=== PATIENT | female | born 1935 | race Caucasian/White ===

== ENCOUNTER 2016-07-07 16:53 | Inpatient (IN) | payer MEDICARE, MEDICAID ==
[~2016-07-07] VITALS: Ht 165.1 cm; Wt 141.9 kg
[~2016-07-07 16:53] MED LIST: CITA20TA9 PO; PALI3 PO
[2016-07-07 17:56] LABS: BASOPHILS % (AUTO) 1.1 % (0.0-2.0); EOSINOPHILS % (AUTO) 3.3 % (1.0-6.0); HEMATOCRIT 34.6 % (36-46); HEMOGLOBIN 10.8 g/dL (12.0-16.0); LYMPHOCYTES # (AUTO) 1.6 K/uL (1.0-4.8); LYMPHOCYTES % (AUTO) 28.3 % (22.0-44.0); MEAN CORPUSCULAR HEMOGLOBIN 26.4 pg (26.0-34.0); MEAN CORPUSCULAR VOLUME 85 fL (80-100); MONOCYTES # (AUTO) 0.4 K/uL (0.1-1.0); MONOCYTES % (AUTO) 6.9 % (2.0-9.0); NEUTROPHILS # (AUTO) 3.4 K/uL (1.8-7.7); NEUTROPHILS % (AUTO) 60.4 % (40.0-70.0); PLATELET COUNT (AUTO) 142 K/uL (150-450); RED BLOOD CELL COUNT(AUTO) 4.08 MIL/uL (4.00-5.20); WHITE BLOOD COUNT (AUTO) 5.6 K/uL (4.5-11.0)
[2016-07-07 18:17] LABS: ANION GAP 9 mmol/L (8-16); CALCIUM, TOTAL 8.5 mg/dL (8.8-10.5); CARBON DIOXIDE 29 mmol/L (22-29); CHLORIDE 107 mmol/L (98-107); CREATININE 0.82 mg/dL (0.60-1.30); GLOMERULAR FILTR. RATE CALC > 60 mL/min (>60); SODIUM SERUM 145 mmol/L (136-145); UREA NITROGEN, BLOOD 15 mg/dL (7-18)
[2016-07-07 18:24] LABS: ALANINE AMINOTRANSFERASE 12 U/L (12-78); ALBUMIN 2.4 g/dL (3.4-5.0); ASPARTATE AMINOTRANSFERASE 15 U/L (15-37); BILIRUBIN,TOTAL 0.6 mg/dL (0.1-1.0); TOTAL PROTEIN, SERUM 6.7 g/dL (6.4-8.2)
[2016-07-07 18:40] LABS: RBC MORPHOLOGY COMMENT ABNORMAL RBC MORPH
[2016-07-07] MEDS ORDERED: ONDANSETRON HCL 4 MG/2 ML VIAL IVP PRN (21:00)
[2016-07-07] MEDS ORDERED: ACETAMINOPHEN 325 MG TABLET PO PRN (21:00)
[2016-07-07] MEDS ORDERED: 0.9% SODIUM CHLORIDE 10 ML SYRINGE IVP PRN (21:00)
[2016-07-07 21:09] VITALS: BP 140/90
[2016-07-07] MEDS ORDERED: DEXTROSE 50%-WATER 25 GM/50 ML SYRINGE IVP PRN (22:30)
[2016-07-07] MEDS ORDERED: INSULIN ASPART 100 UNITS/ML SQ PRN (22:30)
[2016-07-07 23:28] VITALS: BP 139/85
[2016-07-08 04:54] VITALS: BP 131/82
[2016-07-08 05:46] LABS: GLUCOSE COMMENT 1 Received Meds; GLUCOSE,POINT OF CARE 81 MG/DL (70-110)
[2016-07-08 06:47] LABS: GLUCOSE COMMENT 1 Received Meds; GLUCOSE,POINT OF CARE 76 MG/DL (70-110)
[2016-07-08 07:02] LABS: BASOPHILS % (AUTO) 0.6 % (0.0-2.0); EOSINOPHILS % (AUTO) 3.5 % (1.0-6.0); HEMATOCRIT 30.2 % (36-46); HEMOGLOBIN 9.5 g/dL (12.0-16.0); LYMPHOCYTES # (AUTO) 1.2 K/uL (1.0-4.8); MEAN CORPUSCULAR HEMOGLOBIN 26.9 pg (26.0-34.0); MEAN CORPUSCULAR HGB CONC 31.5 G/dL (31.0-37.0); MEAN CORPUSCULAR VOLUME 85 fL (80-100); MONOCYTES # (AUTO) 0.4 K/uL (0.1-1.0); MONOCYTES % (AUTO) 9.6 % (2.0-9.0); NEUTROPHILS # (AUTO) 2.2 K/uL (1.8-7.7); NEUTROPHILS % (AUTO) 56.3 % (40.0-70.0); PLATELET COUNT (AUTO) 166 K/uL (150-450); RED BLOOD CELL COUNT(AUTO) 3.54 MIL/uL (4.00-5.20); RED CELL DISTRIBUTION WIDTH 19.2 % (11.5-14.5); WHITE BLOOD COUNT (AUTO) 3.9 K/uL (4.5-11.0)
[2016-07-08 07:34] LABS: RBC MORPHOLOGY COMMENT ABNORMAL RBC MORPH
[2016-07-08 07:46] LABS: ALANINE AMINOTRANSFERASE 10 U/L (12-78); ALBUMIN 2.1 g/dL (3.4-5.0); ANION GAP 6 mmol/L (8-16); ASPARTATE AMINOTRANSFERASE 15 U/L (15-37); BILIRUBIN,TOTAL 0.4 mg/dL (0.1-1.0); CALCIUM, TOTAL 8.1 mg/dL (8.8-10.5); CARBON DIOXIDE 29 mmol/L (22-29); CHLORIDE 110 mmol/L (98-107); CREATININE 0.68 mg/dL (0.60-1.30); GLOMERULAR FILTR. RATE CALC > 60 mL/min (>60); PHOSPHORUS 3.7 mg/dL (2.5-4.9); SODIUM SERUM 145 mmol/L (136-145); THYROID STIMULATING HORMONE 2.15 uIU/mL (0.36-3.74); UREA NITROGEN, BLOOD 13 mg/dL (7-18)
[2016-07-08 07:53] LABS: IRON, SERUM 35 mcg/dL (50-175); TOTAL IRON BINDING CAPACITY 210 mcg/dL (250-450)
[2016-07-08 08:14] VITALS: BP 119/62
[2016-07-08] MEDS: ESCITALOPRAM OXALATE 10 MG TABLET PO SCH (10:10)
[2016-07-08 11:00] VITALS: BP 114/75
[2016-07-08 11:27] LABS: GLUCOSE,POINT OF CARE 106 MG/DL (70-110)
[2016-07-08] MEDS ORDERED: ACETAMINOPHEN 650 MG/20.3 ML SOLUTION UDCUP PO PRN (15:00)
[2016-07-08] MEDS ORDERED: BISACODYL 10 MG RECTAL RECTAL SUPPOSITORY PR PRN (15:00)
[2016-07-08] MEDS ORDERED: ACETAMINOPHEN 325 MG TABLET PO PRN (15:00)
[2016-07-08] MEDS ORDERED: ZOLPIDEM TARTRATE 5 MG TABLET PO PRN (15:00)
[2016-07-08] MEDS: PANTOPRAZOLE SODIUM 40 MG DR TABLET PO SCH (15:08)
[2016-07-08 15:59] VITALS: BP 102/67
[2016-07-08 17:16] LABS: GLUCOSE,POINT OF CARE 89 MG/DL (70-110)
[2016-07-08 20:00] VITALS: BP 124/77
[2016-07-08] MEDS: DOCUSATE SODIUM 100 MG CAPSULE PO SCH (20:46)
[2016-07-08 22:42] LABS: GLUCOSE,POINT OF CARE 93 MG/DL (70-110)
[2016-07-08 23:46] VITALS: BP 98/60
[2016-07-09 04:17] VITALS: BP 115/86
[2016-07-09 06:42] LABS: GLUCOSE,POINT OF CARE 86 MG/DL (70-110)
[2016-07-09 07:45] VITALS: BP 154/77
[2016-07-09] MEDS: PANTOPRAZOLE SODIUM 40 MG DR TABLET PO SCH (08:48)
[2016-07-09] MEDS: ESCITALOPRAM OXALATE 10 MG TABLET PO SCH (08:50)
[2016-07-09] MEDS: DOCUSATE SODIUM 100 MG CAPSULE PO SCH ×2 (08:50→20:37)
[2016-07-09 11:34] VITALS: BP 141/86
[2016-07-09 11:42] LABS: GLUCOSE,POINT OF CARE 98 MG/DL (70-110)
[2016-07-09] MEDS ORDERED: INFLUENZA VIRUS VACCINE QVS 2016-17 (3YR+)/PF 60 MCG/0.5 ML SYRINGE IM ONE (12:15)
[2016-07-09 15:33] VITALS: BP 156/90
[2016-07-09 16:00] VITALS: BP 131/86
[2016-07-09 17:56] LABS: GLUCOSE,POINT OF CARE 82 MG/DL (70-110)
[2016-07-09 19:36] VITALS: BP 154/95
[2016-07-09 23:31] LABS: GLUCOSE,POINT OF CARE 100 MG/DL (70-110)
[2016-07-10 08:00] VITALS: BP 132/74
[2016-07-10] MEDS: PANTOPRAZOLE SODIUM 40 MG DR TABLET PO SCH (08:01)
[2016-07-10] MEDS: ESCITALOPRAM OXALATE 10 MG TABLET PO SCH (08:01)
[2016-07-10] MEDS: DOCUSATE SODIUM 100 MG CAPSULE PO SCH (08:01)
[2016-07-10 11:55] VITALS: BP 155/81
[2016-07-10 11:59] LABS: GLUCOSE,POINT OF CARE 80 MG/DL (70-110)
[2016-07-10 12:00] LABS: GLUCOSE,POINT OF CARE 101 MG/DL (70-110)
[2016-07-10] MEDS ORDERED: IRON SUCROSE COMPLEX 100 MG in SODIUM CHLORIDE 0.9% 100 ML IV ONE (15:00)
[2016-07-10 16:21] VITALS: BP 135/59
[2016-07-10 17:27] LABS: GLUCOSE,POINT OF CARE 90 MG/DL (70-110)
[2016-07-10 19:24] VITALS: BP 141/79
== END 2016-07-10 21:38 | DRG 811 ==
LOC: EMS 16:58 → 6N 19:30
PROVIDERS: ADMIT Internal Medicine; ATTEND Internal Medicine
DX: D50.9 Iron deficiency anemia, unspecified (principal); E43 Unspecified severe protein-calorie malnutrition; Z68.43 Body mass index [BMI] 50.0-59.9, adult; F32.1 Major depressive disorder, single episode, moderate; R45.851 Suicidal ideations; L89.151 Pressure ulcer of sacral region, stage 1; G89.29 Other chronic pain; M25.562 Pain in left knee; M25.561 Pain in right knee; R62.7 Adult failure to thrive; F41.9 Anxiety disorder, unspecified; E66.01 Morbid (severe) obesity due to excess calories; F03.90 Unspecified dementia, unspecified severity, without behavioral disturbance, psychotic disturbance, mood disturbance, and anxiety; E78.5 Hyperlipidemia, unspecified; I25.10 Atherosclerotic heart disease of native coronary artery without angina pectoris; R54 Age-related physical debility; E11.9 Type 2 diabetes mellitus without complications; Z53.29 Procedure and treatment not carried out because of patient's decision for other reasons; Z95.1 Presence of aortocoronary bypass graft; Z90.49 Acquired absence of other specified parts of digestive tract; Z88.0 Allergy status to penicillin; Z79.899 Other long term (current) drug therapy; Z86.73 Personal history of transient ischemic attack (TIA), and cerebral infarction without residual deficits; Z83.3 Family history of diabetes mellitus; Z82.49 Family history of ischemic heart disease and other diseases of the circulatory system
CPT/HCPCS: 82271; 82607; 82746; 82962; 83540; 83550; 83735; 84100; 84443; 97162; 99285; G0480; J1756; J7050

== ENCOUNTER 2021-06-06 12:08 | Inpatient (IN) | payer MEDICARE, OTHER ==
[~2021-06-06] VITALS: Ht 175.3 cm; Wt 127.0 kg
[~2021-06-06 12:08] MED LIST changes: +ACET-784 PO; +APIX2.5T PO; +ASPI-1450 PO; +BISA10SU11 PR; +BUPR75 PO; +CEFU250T87 PO; +CHOL-35 PO; +CITA-144 PO; -CITA20TA9 PO; +DIPH25TA20 PO; +DOCU-270 PO; +DOXY-354 PO; +FAMO20 PO; +FERR-89 PO; +FLUT16H NASAL; +INSU100V SQ; +LACT1CAP70 PO; +METO25XL PO; +MOM30 PO; +MULT-1203 PO; -PALI3 PO; +VALS40TA4 PO
[2021-06-06] MEDS ORDERED: SODIUM CHLORIDE 0.9% 2,000 ML IV ONE (12:30)
[2021-06-06] MEDS ORDERED: ACETAMINOPHEN 1000 MG/ISO-OSM 100 ML IV ONE (13:00)
[2021-06-06] MEDS ORDERED: CefTRIAXone 1 GM/DEXTROSE 50 ML IV ONE (13:00)
[2021-06-06 13:03] LABS: BASOPHILS % (AUTO) 0.4 % (0.0-2.0); EOSINOPHILS % (AUTO) 0.2 % (1.0-6.0); HEMATOCRIT 31.5 % (36-46); LYMPHOCYTES # (AUTO) 0.3 K/uL (1.0-4.8); LYMPHOCYTES % (AUTO) 2.3 % (22.0-44.0); MEAN CORPUSCULAR HEMOGLOBIN 28.2 pg (26.0-34.0); MEAN CORPUSCULAR HGB CONC 31.9 G/dL (31.0-37.0); MEAN CORPUSCULAR VOLUME 89 fL (80-100); MONOCYTES # (AUTO) 0.3 K/uL (0.1-1.0); MONOCYTES % (AUTO) 2.4 % (2.0-9.0); NEUTROPHILS # (AUTO) 10.9 K/uL (1.8-7.7); PLATELET COUNT (AUTO) 140 K/uL (150-450); RED BLOOD CELL COUNT(AUTO) 3.56 MIL/uL (4.00-5.20)
[2021-06-06 13:12] LABS: NEUTROPHILS % (AUTO) 94.7 % (40.0-70.0)
[2021-06-06 13:19] LABS: ANION GAP 17 mmol/L (8-16); CARBON DIOXIDE 23 mmol/L (22-29); CHLORIDE 105 mmol/L (98-107); CREATININE 2.08 mg/dL (0.60-1.30); GLOMERULAR FILTR. RATE CALC 23 mL/min (>60); GLUCOSE,RANDOM 137 mg/dL (70-110); POTASSIUM 5.2 mmol/L (3.5-5.1); SODIUM SERUM 145 mmol/L (136-145); UREA NITROGEN, BLOOD 43 mg/dL (7-18)
[2021-06-06 13:20] LABS: CALCIUM, TOTAL 9.4 mg/dL (8.8-10.5)
[2021-06-06 13:25] LABS: ALANINE AMINOTRANSFERASE 35 U/L (12-78); ALBUMIN 2.6 g/dL (3.4-5.0); ALKALINE PHOSPHATASE 41 U/L (46-116); ASPARTATE AMINOTRANSFERASE 89 U/L (15-37); BILIRUBIN,TOTAL 0.9 mg/dL (0.1-1.0); LIPASE 33 U/L (73-393); TOTAL PROTEIN, SERUM 7.8 g/dL (6.4-8.2)
[2021-06-06 13:30] LABS: ABG CARBOXYHEMOGLOBIN 0.3 % (0.0-1.5); ABG HCO3 23.2 mmol/L (22.0-26.0); ABG METHEMOGLOBIN 0.3 % (0.0-1.5); ABG OXYGEN CONTENT 13.9 mL/dL (15.0-23.0); ABG OXYGEN SATURATION 91.6 % (95.0-98.0); ABG OXYHEMOGLOBIN 91.1 % (94.0-100.0); ABG PCO2 34 mmHg (35-45); ABG PH 7.438 (7.35-7.450); ABG TOTAL HEMOGLOBIN 10.8 G/dL (12.0-18.0); PO2, ARTERIAL BG 61.7 mmHg (71.0-79.0); SOURCE, BLOOD GAS ARTERIAL; TEMPERATURE, FAHRENHEIT, BG 98.7 FAHREN (96.0-98.6)
[2021-06-06 13:40] LABS: B-TYPE NATRIURETIC PEPTIDE 1720 pg/mL (0-100)
[2021-06-06 13:44] LABS: COVID AG,FIA SOURCE NASOPHARYNGEAL
[2021-06-06 13:46] LABS: AMMONIA < 10 umol/L (11-32)
[2021-06-06 13:56] LABS: SITE, BLOOD GAS RT RADIAL
[2021-06-06 13:57] LABS: LACTIC ACID 4.1 mmol/L (0.4-2.0)
[2021-06-06] MEDS ORDERED: VANCOMYCIN HCL 1 GM/D5% WATER 200 ML IV ONE (14:45)
[2021-06-06] MEDS ORDERED: SODIUM CHLORIDE 0.9% 2,400 ML IV ONE (14:45)
[2021-06-06 14:59] LABS: APPEARANCE,URINE TURBID (CLEAR); GLUCOSE, URINE (UA) NEGATIVE (NEGATIVE); KETONES,URINE 15 mg/dL (NEGATIVE); LEUKOCYTE ESTERASE ,URINE SMALL (NEGATIVE); NITRATE,URINE POSITIVE (NEGATIVE); OCCULT BLOOD,URINE LARGE (NEGATIVE); PROTEIN,URINE SEE CONFIRM (NEGATIVE)
[2021-06-06 15:06] LABS: BILIRUBIN,URINE PRELIM. POSITIVE (NEGATIVE)
[2021-06-06 15:34] LABS: SULFOSALICYLIC ACID,URINE 3+ (Negative)
[2021-06-06 15:36] LABS: BACTERIA,URINE Moderate /HPF (None Seen); COARSE GRANULAR CASTS,URINE 0-2 /LPF (None Seen); RBC,URINE 26-50 /HPF (0-2); SQUAMOUS EPITHELIAL CELL,UR Few /LPF (None Seen)
[2021-06-06] MEDS ORDERED: BISACODYL 10 MG RECTAL RECTAL SUPPOSITORY PR PRN (15:45)
[2021-06-06] MEDS ORDERED: DEXTROSE 50%-WATER 25 GM/50 ML SYRINGE IVP PRN (15:45)
[2021-06-06] MEDS ORDERED: SODIUM CHLORIDE 0.9% 1,000 ML IV ONE (15:45)
[2021-06-06] MEDS ORDERED: ONDANSETRON HCL 4 MG/2 ML VIAL IVP PRN (15:45)
[2021-06-06] MEDS ORDERED: INSULIN LISPRO 100 UNITS/ML SQ PRN (15:45)
[2021-06-06] MEDS ORDERED: ACETAMINOPHEN 325 MG TABLET PO PRN (15:45)
[2021-06-06] MEDS ORDERED: HEPARIN SODIUM,PORCINE 5,000 UNITS/ML VIAL IVP ONE (16:00)
[2021-06-06] MEDS ORDERED: HEPARIN SODIUM,PORCINE 5,000 UNITS/ML VIAL IVP PRN ×2 (16:00)
[2021-06-06] MEDS ORDERED: VANCOMYCIN HCL 750 MG in DEXTROSE 5%-WATER 250 ML IV ONE (16:15)
[2021-06-06 16:34] LABS: HEMATOCRIT 27.5 % (36-46); HEMOGLOBIN 8.8 g/dL (12.0-16.0); MEAN CORPUSCULAR HEMOGLOBIN 28.2 pg (26.0-34.0); MEAN CORPUSCULAR HGB CONC 32.2 G/dL (31.0-37.0); MEAN CORPUSCULAR VOLUME 87 fL (80-100); PLATELET COUNT (AUTO) 125 K/uL (150-450); RED BLOOD CELL COUNT(AUTO) 3.14 MIL/uL (4.00-5.20); RED CELL DISTRIBUTION WIDTH 15.7 % (11.5-14.5)
[2021-06-06 16:42] LABS: INR 1.2 (0.9-1.1); PROTHROMBIN TIME 12.6 SEC (9.4-11.6)
[2021-06-06] MEDS: NOREPINEPHRINE 4 MG/D5%-WATER 250 ML IV PRN ×2 (16:51→21:32)
[2021-06-06 16:54] LABS: BAND NEUTROPHILS % (MANUAL) 17 % (0-5); LYMPHOCYTES % (MANUAL) 10 % (22-44); MONOCYTES % (MANUAL) 5 % (2-9); SEGMENTED NEUTROPHILS % 68 % (40-70)
[2021-06-06] MEDS: HEPARIN SODIUM 25000 UNITS/D5W 250 ML IV PRN (17:26)
[2021-06-06] MEDS: ASPIRIN 81 MG DR TABLET PO SCH (18:30)
[2021-06-06 18:49] LABS: CALCIUM, TOTAL 8.1 mg/dL (8.8-10.5); CREATININE 2.05 mg/dL (0.60-1.30); POTASSIUM 3.5 mmol/L (3.5-5.1)
[2021-06-06 20:00] VITALS: BP 97/48
[2021-06-06] MEDS: SODIUM CHLORIDE 0.9% 1,000 ML IV SCH (21:32)
[2021-06-06] MEDS: PANTOPRAZOLE SODIUM 40 MG/VIAL IVP SCH (21:34)
[2021-06-07] VITALS: BP 100/38
[2021-06-07] MEDS: NOREPINEPHRINE 4 MG/D5%-WATER 250 ML IV PRN ×3 (01:20→10:50)
[2021-06-07 04:00] VITALS: BP 94/38
[2021-06-07 06:10] LABS: BASOPHILS % (AUTO) 0.4 % (0.0-2.0); EOSINOPHILS % (AUTO) 0.5 % (1.0-6.0); HEMATOCRIT 29.7 % (36-46); HEMOGLOBIN 9.5 g/dL (12.0-16.0); LYMPHOCYTES % (AUTO) 4.6 % (22.0-44.0); MEAN CORPUSCULAR HEMOGLOBIN 28.1 pg (26.0-34.0); MEAN CORPUSCULAR VOLUME 88 fL (80-100); MONOCYTES # (AUTO) 1.1 K/uL (0.1-1.0); MONOCYTES % (AUTO) 5.2 % (2.0-9.0); NEUTROPHILS # (AUTO) 19.1 K/uL (1.8-7.7); PLATELET COUNT (AUTO) 180 K/uL (150-450); RED BLOOD CELL COUNT(AUTO) 3.39 MIL/uL (4.00-5.20); RED CELL DISTRIBUTION WIDTH 16.3 % (11.5-14.5)
[2021-06-07 06:29] LABS: % IRON SATURATION 5.4 % (22-44)
[2021-06-07 06:49] LABS: NEUTROPHILS % (AUTO) 89.3 % (40.0-70.0)
[2021-06-07 08:00] VITALS: BP 107/61
[2021-06-07 08:11] LABS: CHOL/HDL RATIO 4.9 (3.9-5.7); CREATININE 2.08 mg/dL (0.60-1.30); POTASSIUM 3.4 mmol/L (3.5-5.1)
[2021-06-07] MEDS: PANTOPRAZOLE SODIUM 40 MG/VIAL IVP SCH (08:49)
[2021-06-07] MEDS: ATORVASTATIN CALCIUM 40 MG TABLET PO SCH (09:00)
[2021-06-07] MEDS: ASPIRIN 81 MG DR TABLET PO SCH (09:00)
[2021-06-07] MEDS ORDERED: PANTOPRAZOLE SODIUM 40 MG/VIAL IVP SCH (09:00)
[2021-06-07] MEDS: VANCOMYCIN HCL 750 MG in DEXTROSE 5%-WATER 250 ML IV SCH (10:48)
[2021-06-07 12:00] VITALS: BP 107/61
[2021-06-07] MEDS: CefTRIAXone 1 GM/DEXTROSE 50 ML IV SCH (12:40)
[2021-06-07] MEDS: HEPARIN SODIUM 25000 UNITS/D5W 250 ML IV PRN (13:12)
[2021-06-07] MEDS: SODIUM CHLORIDE 0.9% 1,000 ML IV SCH (14:42)
[2021-06-07 14:51] LABS: GLUCOMETER DEV NAME(LOC) AHU.; GLUCOSE,POINT OF CARE 171 MG/DL (70-110)
[2021-06-07 14:51] LABS: GLUCOMETER DEV NAME(LOC) AHU.; GLUCOSE,POINT OF CARE 151 MG/DL (70-110)
[2021-06-07] MEDS ORDERED: CefTRIAXone 1 GM/DEXTROSE 50 ML IV SCH (15:00)
[2021-06-07 16:00] VITALS: BP 128/57
[2021-06-07 18:36] LABS: GLUCOMETER DEV NAME(LOC) AHU.; GLUCOSE,POINT OF CARE 117 MG/DL (70-110)
[2021-06-07 20:00] VITALS: BP 117/76
[2021-06-07 23:31] LABS: GLUCOMETER DEV NAME(LOC) AHU.; GLUCOSE,POINT OF CARE 98 MG/DL (70-110)
[2021-06-08] VITALS: BP 96/40
[2021-06-08] MEDS: SODIUM CHLORIDE 0.9% 1,000 ML IV SCH ×2 (00:07→20:59)
[2021-06-08] MEDS: NOREPINEPHRINE 4 MG/D5%-WATER 250 ML IV PRN ×2 (00:09→05:27)
[2021-06-08 04:00] VITALS: BP 103/47
[2021-06-08 06:33] LABS: CALCIUM, TOTAL 7.9 mg/dL (8.8-10.5); CREATININE 1.46 mg/dL (0.60-1.30); MAGNESIUM 1.9 mg/dL (1.80-2.40); PHOSPHORUS 2.1 mg/dL (2.5-4.9)
[2021-06-08 06:51] LABS: POTASSIUM 2.7 mmol/L (3.5-5.1)
[2021-06-08] MEDS ORDERED: POTASSIUM CHLORIDE 10% 40 MEQ/30 ML LIQUID UDCUP PO ONE (07:00)
[2021-06-08 07:01] LABS: BASOPHILS % (AUTO) 0.3 % (0.0-2.0); EOSINOPHILS % (AUTO) 0.3 % (1.0-6.0); HEMATOCRIT 28.1 % (36-46); HEMOGLOBIN 9.4 g/dL (12.0-16.0); LYMPHOCYTES % (AUTO) 7.9 % (22.0-44.0); MEAN CORPUSCULAR HEMOGLOBIN 28.4 pg (26.0-34.0); MEAN CORPUSCULAR HGB CONC 33.3 G/dL (31.0-37.0); MEAN CORPUSCULAR VOLUME 85 fL (80-100); MONOCYTES # (AUTO) 0.8 K/uL (0.1-1.0); MONOCYTES % (AUTO) 6.1 % (2.0-9.0); NEUTROPHILS # (AUTO) 10.9 K/uL (1.8-7.7); PLATELET COUNT (AUTO) 159 K/uL (150-450); RED BLOOD CELL COUNT(AUTO) 3.29 MIL/uL (4.00-5.20)
[2021-06-08 07:05] LABS: NEUTROPHILS % (AUTO) 85.4 % (40.0-70.0)
[2021-06-08 07:11] LABS: GLUCOMETER DEV NAME(LOC) AHU.; GLUCOSE,POINT OF CARE 103 MG/DL (70-110)
[2021-06-08 08:00] VITALS: BP 112/51
[2021-06-08] MEDS: PANTOPRAZOLE SODIUM 40 MG/VIAL IVP SCH (08:07)
[2021-06-08] MEDS: VANCOMYCIN HCL 750 MG in DEXTROSE 5%-WATER 250 ML IV SCH (08:09)
[2021-06-08] MEDS: HEPARIN SODIUM,PORCINE 5,000 UNITS/ML VIAL SQ SCH ×2 (08:13→16:21)
[2021-06-08] MEDS: ASPIRIN 81 MG DR TABLET PO SCH (09:00)
[2021-06-08] MEDS: ATORVASTATIN CALCIUM 40 MG TABLET PO SCH (09:00)
[2021-06-08] MEDS ORDERED: SODIUM PHOS,M-BASIC-D-BASIC 30 MMOL in DEXTROSE 5%-WATER 250 ML IV ONE (10:00)
[2021-06-08] MEDS: POTASSIUM CHL 10 MEQ/WATER 50 ML IV SCH ×4 (11:10→14:42)
[2021-06-08 12:00] VITALS: BP 123/54
[2021-06-08] MEDS: CefTRIAXone 1 GM/DEXTROSE 50 ML IV SCH (14:39)
[2021-06-08 16:35] LABS: CALCIUM, TOTAL 7.8 mg/dL (8.8-10.5); CREATININE 1.24 mg/dL (0.60-1.30); POTASSIUM 3.6 mmol/L (3.5-5.1)
[2021-06-08 17:56] LABS: GLUCOMETER DEV NAME(LOC) AHU.; GLUCOSE,POINT OF CARE 108 MG/DL (70-110)
[2021-06-08 18:00] VITALS: BP 88/46
[2021-06-08 20:00] VITALS: BP 95/54
[2021-06-09] VITALS (12 sets, daily range): BP systolic 80–143; BP diastolic 32–80
[2021-06-09] MEDS: HEPARIN SODIUM,PORCINE 5,000 UNITS/ML VIAL SQ SCH ×3 (00:06→16:46)
[2021-06-09] MEDS: NOREPINEPHRINE 4 MG/D5%-WATER 250 ML IV PRN (01:23)
[2021-06-09 05:25] LABS: GLUCOMETER DEV NAME(LOC) AHU.; GLUCOSE,POINT OF CARE 107 MG/DL (70-110)
[2021-06-09 05:53] LABS: CREATININE 1.08 mg/dL (0.60-1.30); MAGNESIUM 1.9 mg/dL (1.80-2.40); VANCOMYCIN,RANDOM 12.5 mcg/mL (25.0-50.0)
[2021-06-09] MEDS: ATORVASTATIN CALCIUM 40 MG TABLET PO SCH (08:04)
[2021-06-09] MEDS: ASPIRIN 81 MG DR TABLET PO SCH (08:05)
[2021-06-09] MEDS: PANTOPRAZOLE SODIUM 40 MG/VIAL IVP SCH (08:15)
[2021-06-09] MEDS: VANCOMYCIN HCL 750 MG in DEXTROSE 5%-WATER 250 ML IV SCH (08:19)
[2021-06-09] MEDS ORDERED: POTASSIUM CHLORIDE 10% 40 MEQ/30 ML LIQUID UDCUP PO STA (09:13)
[2021-06-09] MEDS ORDERED: SODIUM BICARBONATE 50 MEQ/50 ML VIAL ONE (09:24)
[2021-06-09] MEDS ORDERED: IOHEXOL 300 MG/ML 100 ML VIAL ONE (09:24)
[2021-06-09] MEDS ORDERED: HEPARIN SODIUM 1000 UNITS/NS 1,000 ML ONE (09:24)
[2021-06-09] MEDS ORDERED: LIDOCAINE/PF 1% 30 ML VIAL ONE (09:24)
[2021-06-09] MEDS ORDERED: IOHEXOL 300 MG/ML 50 ML VIAL ONE ×2 (09:24→10:43)
[2021-06-09] MEDS ORDERED: IOHEXOL 300 MG/ML 150 ML VIAL ONE (09:24)
[2021-06-09] MEDS ORDERED: MIDAZOLAM HCL 2 MG/2 ML VIAL ONE (09:43)
[2021-06-09] MEDS ORDERED: FentaNYL CITRATE PF 100 MCG/2 ML VIAL ONE (09:43)
[2021-06-09] MEDS ORDERED: FentaNYL CITRATE PF 100 MCG/2 ML VIAL IVP ONE ×4 (10:00→10:45)
[2021-06-09] MEDS ORDERED: HEPARIN SODIUM 1000 UNITS/NS 1,000 ML IARTER ONE (10:00)
[2021-06-09] MEDS ORDERED: SODIUM CHLORIDE 0.9% 500 ML IV ONE (10:00)
[2021-06-09] MEDS ORDERED: IOHEXOL 300 MG/ML 150 ML VIAL IARTER ONE (10:00)
[2021-06-09] MEDS ORDERED: LIDOCAINE 1% 30 ML/SOD BICARB 8.4% 4 ML SQ ONE (10:00)
[2021-06-09] MEDS ORDERED: IOHEXOL 240 MG/ML 50 ML VIAL IARTER ONE (11:00)
[2021-06-09] MEDS ORDERED: IOHEXOL 300 MG/ML 100 ML VIAL IARTER ONE (11:00)
[2021-06-09] MEDS ORDERED: HEPARIN SODIUM,PORCINE 5,000 UNITS/ML VIAL IVP ONE ×2 (11:15→13:00)
[2021-06-09] MEDS: CefTRIAXone 1 GM/DEXTROSE 50 ML IV SCH (12:26)
[2021-06-09 14:41] LABS: GLUCOMETER DEV NAME(LOC) AHU.; GLUCOSE,POINT OF CARE 154 MG/DL (70-110)
[2021-06-09 20:45] LABS: GLUCOSE,POINT OF CARE 123 MG/DL (70-110)
[2021-06-09] MEDS ORDERED: SODIUM CHLORIDE 0.9% 1,000 ML ONE (21:00)
[2021-06-09 22:56] LABS: GLUCOMETER DEV NAME(LOC) AHU.; GLUCOSE,POINT OF CARE 94 MG/DL (70-110)
[2021-06-10] VITALS: BP 104/64
[2021-06-10] MEDS: HEPARIN SODIUM,PORCINE 5,000 UNITS/ML VIAL SQ SCH ×4 (00:26→23:49)
[2021-06-10 04:00] VITALS: BP 139/76
[2021-06-10 06:23] LABS: BASOPHILS % (AUTO) 0.9 % (0.0-2.0); EOSINOPHILS % (AUTO) 1.8 % (1.0-6.0); HEMATOCRIT 25.6 % (36-46); HEMOGLOBIN 8.5 g/dL (12.0-16.0); LYMPHOCYTES # (AUTO) 0.7 K/uL (1.0-4.8); MEAN CORPUSCULAR HEMOGLOBIN 28.7 pg (26.0-34.0); MEAN CORPUSCULAR HGB CONC 33.3 G/dL (31.0-37.0); MEAN CORPUSCULAR VOLUME 86 fL (80-100); MONOCYTES # (AUTO) 0.3 K/uL (0.1-1.0); MONOCYTES % (AUTO) 8.3 % (2.0-9.0); NEUTROPHILS # (AUTO) 2.8 K/uL (1.8-7.7); PLATELET COUNT (AUTO) 156 K/uL (150-450); RED BLOOD CELL COUNT(AUTO) 2.96 MIL/uL (4.00-5.20); RED CELL DISTRIBUTION WIDTH 15.9 % (11.5-14.5)
[2021-06-10 06:33] LABS: CALCIUM, TOTAL 8.1 mg/dL (8.8-10.5); CREATININE 0.93 mg/dL (0.60-1.30); MAGNESIUM 1.6 mg/dL (1.80-2.40); POTASSIUM 3.5 mmol/L (3.5-5.1)
[2021-06-10 06:36] LABS: GLUCOSE,POINT OF CARE 94 MG/DL (70-110)
[2021-06-10 08:00] VITALS: BP 112/65
[2021-06-10] MEDS ORDERED: VANCOMYCIN HCL 1.25 GM in DEXTROSE 5%-WATER 250 ML IV SCH (08:00)
[2021-06-10] MEDS: ASPIRIN 81 MG DR TABLET PO SCH (08:39)
[2021-06-10] MEDS: PANTOPRAZOLE SODIUM 40 MG/VIAL IVP SCH (08:39)
[2021-06-10] MEDS: ATORVASTATIN CALCIUM 40 MG TABLET PO SCH (08:39)
[2021-06-10] MEDS: APIXABAN 2.5 MG TABLET PO SCH ×2 (08:40→20:15)
[2021-06-10] MEDS ORDERED: GABAPENTIN 300 MG CAPSULE PO SCH ×2 (10:00→21:00)
[2021-06-10] MEDS: OLANZapine 5 MG TABLET PO SCH ×2 (10:41→20:15)
[2021-06-10] MEDS ORDERED: OLAN5TAB52 PO (10:58)
[2021-06-10] MEDS ORDERED: MELA5TAB21 PO (10:58)
[2021-06-10] MEDS ORDERED: GABA-1181 PO ×2 (10:58)
[2021-06-10] MEDS ORDERED: MELA5TAB40 PO (11:34)
[2021-06-10 11:51] LABS: GLUCOSE,POINT OF CARE 108 MG/DL (70-110)
[2021-06-10 12:00] VITALS: BP 127/65
[2021-06-10] MEDS: CefTRIAXone SODIUM 2 GM in DEXTROSE 5%-WATER 50 ML IV SCH (12:00)
[2021-06-10] MEDS: GABAPENTIN 300 MG CAPSULE PO SCH ×3 (13:00→20:15)
[2021-06-10] MEDS ORDERED: SODIUM CHLORIDE 0.9% 250 ML IV ONE (13:40)
[2021-06-10] MEDS: ALPRAZolam 0.25 MG TABLET PO PRN (15:34)
[2021-06-10] MEDS: IRON SUCROSE COMPLEX 100 MG in SODIUM CHLORIDE 0.9% 100 ML IV SCH (15:41)
[2021-06-10 17:51] LABS: GLUCOMETER DEV NAME(LOC) 5N.3; GLUCOSE,POINT OF CARE 85 MG/DL (70-110)
[2021-06-10 22:09] VITALS: BP 107/57
[2021-06-11 00:53] VITALS: BP 134/54
[2021-06-11 04:00] VITALS: BP 117/58
[2021-06-11 05:16] LABS: GLUCOMETER DEV NAME(LOC) 5N.1C; GLUCOSE,POINT OF CARE 83 MG/DL (70-110)
[2021-06-11] MEDS: HEPARIN SODIUM,PORCINE 5,000 UNITS/ML VIAL SQ SCH ×4 (08:00→23:31)
[2021-06-11] MEDS: ASPIRIN 81 MG DR TABLET PO SCH (08:39)
[2021-06-11] MEDS: PANTOPRAZOLE SODIUM 40 MG/VIAL IVP SCH (08:39)
[2021-06-11] MEDS: OLANZapine 5 MG TABLET PO SCH ×2 (08:39→20:27)
[2021-06-11] MEDS: APIXABAN 2.5 MG TABLET PO SCH ×2 (08:40→20:27)
[2021-06-11] MEDS: ATORVASTATIN CALCIUM 40 MG TABLET PO SCH (08:40)
[2021-06-11] MEDS: GABAPENTIN 300 MG CAPSULE PO SCH ×4 (08:43→20:27)
[2021-06-11] MEDS: ALPRAZolam 0.25 MG TABLET PO PRN (11:36)
[2021-06-11 12:29] LABS: CALCIUM, TOTAL 8.8 mg/dL (8.8-10.5); CREATININE 1.02 mg/dL (0.60-1.30); POTASSIUM 4.1 mmol/L (3.5-5.1)
[2021-06-11 12:31] LABS: GLUCOMETER DEV NAME(LOC) 5S.2B; GLUCOSE,POINT OF CARE 111 MG/DL (70-110)
[2021-06-11 12:35] LABS: BILIRUBIN,TOTAL 0.4 mg/dL (0.1-1.0); MAGNESIUM 2.2 mg/dL (1.80-2.40); TOTAL PROTEIN, SERUM 6.7 g/dL (6.4-8.2)
[2021-06-11 12:42] LABS: ALBUMIN 2.1 g/dL (3.4-5.0)
[2021-06-11 12:44] LABS: BASOPHILS % (AUTO) 0.6 % (0.0-2.0); EOSINOPHILS % (AUTO) 1.4 % (1.0-6.0); HEMATOCRIT 27.7 % (36-46); HEMOGLOBIN 8.9 g/dL (12.0-16.0); LYMPHOCYTES # (AUTO) 0.9 K/uL (1.0-4.8); LYMPHOCYTES % (AUTO) 15.1 % (22.0-44.0); MEAN CORPUSCULAR HEMOGLOBIN 28.4 pg (26.0-34.0); MEAN CORPUSCULAR HGB CONC 32.4 G/dL (31.0-37.0); MEAN CORPUSCULAR VOLUME 88 fL (80-100); MONOCYTES # (AUTO) 0.5 K/uL (0.1-1.0); MONOCYTES % (AUTO) 8.3 % (2.0-9.0); NEUTROPHILS # (AUTO) 4.6 K/uL (1.8-7.7); NEUTROPHILS % (AUTO) 74.6 % (40.0-70.0); PLATELET COUNT (AUTO) 231 K/uL (150-450); RED BLOOD CELL COUNT(AUTO) 3.15 MIL/uL (4.00-5.20); RED CELL DISTRIBUTION WIDTH 16.4 % (11.5-14.5)
[2021-06-11] MEDS ORDERED: HALOPERIDOL 5 MG TABLET PO ONE (13:15)
[2021-06-11] MEDS ORDERED: LORazepam 2 MG TABLET PO ONE (13:15)
[2021-06-11] MEDS ORDERED: DiphenhydrAMINE HCL 25 MG CAPSULE PO ONE (13:15)
[2021-06-11] MEDS: CefTRIAXone SODIUM 2 GM in DEXTROSE 5%-WATER 50 ML IV SCH (13:15)
[2021-06-11] MEDS: IRON SUCROSE COMPLEX 100 MG in SODIUM CHLORIDE 0.9% 100 ML IV SCH (15:21)
[2021-06-11 19:15] VITALS: BP 112/62
[2021-06-11 20:26] LABS: GLUCOMETER DEV NAME(LOC) 5S.2B; GLUCOSE,POINT OF CARE 118 MG/DL (70-110)
[2021-06-12] VITALS: BP 110/70
[2021-06-12 04:00] VITALS: BP 115/88
[2021-06-12 06:42] LABS: GLUCOMETER DEV NAME(LOC) 5N.3; GLUCOSE,POINT OF CARE 98 MG/DL (70-110)
[2021-06-12 09:01] LABS: GLUCOMETER DEV NAME(LOC) 5S.2B; GLUCOSE,POINT OF CARE 77 MG/DL (70-110)
[2021-06-12] MEDS: ATORVASTATIN CALCIUM 40 MG TABLET PO SCH (09:13)
[2021-06-12] MEDS: PANTOPRAZOLE SODIUM 40 MG/VIAL IVP SCH (09:14)
[2021-06-12] MEDS: GABAPENTIN 300 MG CAPSULE PO SCH ×3 (09:14→17:33)
[2021-06-12] MEDS: ASPIRIN 81 MG DR TABLET PO SCH (09:14)
[2021-06-12] MEDS: APIXABAN 2.5 MG TABLET PO SCH (09:14)
[2021-06-12] MEDS: HEPARIN SODIUM,PORCINE 5,000 UNITS/ML VIAL SQ SCH ×2 (09:15→17:33)
[2021-06-12 09:34] LABS: CALCIUM, TOTAL 8.8 mg/dL (8.8-10.5); CREATININE 0.98 mg/dL (0.60-1.30); MAGNESIUM 1.8 mg/dL (1.80-2.40); PHOSPHORUS 3.8 mg/dL (2.5-4.9); POTASSIUM 3.9 mmol/L (3.5-5.1)
[2021-06-12] MEDS: OLANZapine 5 MG TABLET PO SCH (10:04)
[2021-06-12 12:21] VITALS: BP 109/65
[2021-06-12 12:21] LABS: GLUCOMETER DEV NAME(LOC) 5S.2B; GLUCOSE,POINT OF CARE 96 MG/DL (70-110)
[2021-06-12] MEDS ORDERED: CEFT2PIG2 IV (12:43)
[2021-06-12] MEDS ORDERED: HEPA500018 SQ (13:06)
[2021-06-12] MEDS ORDERED: ALPR-340 PO (13:07)
[2021-06-12] MEDS ORDERED: SODIUM CHLORIDE 0.9% 100 ML ONE (13:08)
[2021-06-12] MEDS ORDERED: INSU100V SQ (13:09)
[2021-06-12] MEDS: CefTRIAXone SODIUM 2 GM in DEXTROSE 5%-WATER 50 ML IV SCH (13:16)
[2021-06-12] MEDS: IRON SUCROSE COMPLEX 100 MG in SODIUM CHLORIDE 0.9% 100 ML IV SCH (14:59)
[2021-06-12 16:24] VITALS: BP 109/74
== END 2021-06-12 18:10 | DRG 853 ==
LOC: EMS 12:14 → 5N 16:11 → ICUN 16:12 → 5S 06-10 12:30
PROVIDERS: ADMIT Internal Medicine; ATTEND Internal Medicine
PROC: 4A023N7 Measurement of Cardiac Sampling and Pressure, Left Heart, Percutaneous Approach (ICD-10-PCS; principal; 2021-06-09)
PROC: 02703ZZ Dilation of Coronary Artery, One Artery, Percutaneous Approach (ICD-10-PCS; 2021-06-09)
PROC: B2111ZZ Fluoroscopy of Multiple Coronary Arteries using Low Osmolar Contrast (ICD-10-PCS; 2021-06-09)
PROC: B2131ZZ Fluoroscopy of Multiple Coronary Artery Bypass Grafts using Low Osmolar Contrast (ICD-10-PCS; 2021-06-09)
PROC: B41F1ZZ Fluoroscopy of Right Lower Extremity Arteries using Low Osmolar Contrast (ICD-10-PCS; 2021-06-09)
PROC: 05HY33Z Insertion of Infusion Device into Upper Vein, Percutaneous Approach (ICD-10-PCS; 2021-06-12)
DX: A41.89 Other specified sepsis (principal); I21.4 Non-ST elevation (NSTEMI) myocardial infarction; R65.21 Severe sepsis with septic shock; I50.23 Acute on chronic systolic (congestive) heart failure; N17.0 Acute kidney failure with tubular necrosis; G92.8 Other toxic encephalopathy; I48.20 Chronic atrial fibrillation, unspecified; I13.0 Hypertensive heart and chronic kidney disease with heart failure and stage 1 through stage 4 chronic kidney disease, or unspecified chronic kidney disease; Z68.41 Body mass index [BMI] 40.0-44.9, adult; F03.90 Unspecified dementia, unspecified severity, without behavioral disturbance, psychotic disturbance, mood disturbance, and anxiety; I25.10 Atherosclerotic heart disease of native coronary artery without angina pectoris; I25.5 Ischemic cardiomyopathy; N18.9 Chronic kidney disease, unspecified; D63.1 Anemia in chronic kidney disease; E11.22 Type 2 diabetes mellitus with diabetic chronic kidney disease; D50.9 Iron deficiency anemia, unspecified; B95.0 Streptococcus, group A, as the cause of diseases classified elsewhere; E83.39 Other disorders of phosphorus metabolism; Z20.822 Contact with and (suspected) exposure to COVID-19; F32.A Depression, unspecified; F41.9 Anxiety disorder, unspecified; I08.2 Rheumatic disorders of both aortic and tricuspid valves; E66.01 Morbid (severe) obesity due to excess calories; E87.6 Hypokalemia; Z66 Do not resuscitate; Z82.49 Family history of ischemic heart disease and other diseases of the circulatory system; Z83.3 Family history of diabetes mellitus; Z88.0 Allergy status to penicillin; Z95.1 Presence of aortocoronary bypass graft; Z86.73 Personal history of transient ischemic attack (TIA), and cerebral infarction without residual deficits; Z79.899 Other long term (current) drug therapy
CPT/HCPCS: 36245; 36569; 36600; 51702; 71045; 74176; 76705; 76770; 76937; 80048; 80053; 80061; 80202; 81001; 81002; 82140; 82805; 82962; 83036; 83540; 83550; 83605; 83690; 83735; 83880; 84100; 84132; 84484; 85025; 85610; 85730; 87040; 87077; 87081; 87086; 87205; 92526; 92920; 93005; 93306; 93459; 97163; 99291; C9113; G0378; J0131; J0696; J1644; J1756; J2250; J3010; J3370; J3480; J3490; J7030; J7050; J7060; Q9967; 36415-L1; 36415-TC; X7700